=== PATIENT | male | born 1960 | race Caucasian/White ===

== ENCOUNTER 2021-04-09 11:18 | Emergency (ER) | payer OTHER, MEDICAID, SELFPAY ==
[2021-04-09 11:31] VITALS: BP 140/77; PULSE 68; RESP 14; TEMP 36.6; O2SAT 99; BMI 22.4
--- NOTE | 2021-04-09 13:07 | ED.SKABFB ---
HPI - Skin/Abscess/Foreign Bdy <MARILOU Costello - Last Filed: 04/09/21 13:14> General Chief complaint: Skin/Abscess/Foreign Body Stated complaint: Fungus of some kind growing on left hand Time Seen by Provider: 04/09/21 12:02 Source: patient Mode of arrival: Ambulatory Limitations: no limitations History of Present Illness HPI narrative: [age] year male presents to the emergency department with complaint of growth on dorsum of left hand over 2nd distal metacarpall for over 1 year. Patient reports it has not been getting bigger over the last few months nor is it red or painful, but it is bothersome as it is approximately 1 cm tall, as round as a pencil in diameter and catches on things often. He reports that it is painful when it is bumped, but is not been bleeding or have any wounds surrounding. He denies any other skin lesions. He denies any fever, swelling, illness of any kind, or medical problems. He reports that he has an insurance change with his [facility], and he can not find anyone on the [place] who will take his insurance. He would like this lesion removed if possible. He reports that his tetanus is up-to-date. Related Data Home Medications Medication Instructions Recorded Confirmed No Known Home Medications 04/09/21 04/09/21 Allergies Allergy/AdvReac Type Severity Reaction Status Date / Time No Known Drug Allergies Allergy Verified 04/09/21 11:36 Review of Systems <MARILOU Costello - Last Filed: 04/09/21 13:14> Review of Systems Narrative: General: denies fever, chills Head/Neck: denies headache, neck pain Eyes: denies visual changes, eye pain Cardio: denies chest pain, palpitations Respiratory: denies shortness of breath, cough GI: denies abdominal pain, nausea, vomiting, or diarrhea : denies dysuria, hematuria MSK: denies joint pain, muscle weakness Skin: denies rash, itching Neuro: denies numbness, tingling Patient History <MARILOU Costello - Last Filed: 04/09/21 13:14> Social History Smoking Status: Current every day smoker Smoking Status: Current every day smoker alcohol intake frequency: a few times a week Alcohol type: beer Substance Use Type: does not use Exam <MARILOU Costello Last Filed: 04/09/21 13:14> Narrative Exam Narrative: Independently reviewed vitals signs and nursing notes. General: Awake, alert, nontoxic, no cardiorespiratory distress Head/Neck: Atraumatic, neck full range of motion Eyes: EOMI, conjunctiva normal Nose: nares patent, no rhinorrhea Mouth/Throat: moist mucus membranes Cardio: Regular rate and rhythm, no peripheral edema Respiratory: respirations unlabored without wheezing, stridor, or rales. No retractions. GI: Abdomen soft, nontender MSK: Moves all extremities, neurovascularly intact Skin: Normal capillary refill, no rash, left dorsum of his hand over the distal 2nd metacarpal has a 1 cm tall x 10 mm wide lesion which is dark brown, dry, appears crusted, without any surrounding erythema, edema, rash, or skin color change. Neuro: Normal speech and cognition, normal gait Initial Vital Signs Initial Vital Signs: Vital Signs Temperature 97.8 F 04/09/21 11:31 Pulse Rate 68 04/09/21 11:31 Respiratory Rate 14 04/09/21 11:31 Blood Pressure 140/77 04/09/21 11:31 Pulse Oximetry 99 04/09/21 11:31 <DO Sean Varela Last Filed: 04/09/21 13:20> Initial Vital Signs Initial Vital Signs: Vital Signs Temperature 97.8 F 04/09/21 11:31 Pulse Rate 68 04/09/21 11:31 Respiratory Rate 14 04/09/21 11:31 Blood Pressure 140/77 04/09/21 11:31 Pulse Oximetry 99 04/09/21 11:31 Course <MARILOU Costello - Last Filed: 04/09/21 13:14> Orders Ordered: ED Orders 04/09/21 13:07 Consult to Wound Care Stat Vital Signs Vital signs: Vital Signs - 8 hr 04/09/21 11:31 Temperature 97.8 F Pulse Rate 68 Respiratory Rate 14 Blood Pressure 140/77 Pulse Oximetry 99 <DO Sean Varela Last Filed: 04/09/21 13:20> Orders Ordered: ED Orders 04/09/21 13:07 Consult to Wound Care Stat Vital Signs Vital signs: Vital Signs - 8 hr 04/09/21 11:31 Temperature 97.8 F Pulse Rate 68 Respiratory Rate 14 Blood Pressure 140/77 Pulse Oximetry 99 [facility] - Skin/Abscess/Foreign Bdy <Ambar Caridad DIANDRA CastañedaP - Last Filed: 04/09/21 13:14> [facility] Narrative Medical decision making narrative: 60-year-old male presents to the emergency department with concern about a lesion over the dorsum of his left hand for over 1 year. There are no signs of infection, patient has not had any systemic signs of infection, his range of motion of his left hand is not limited in his full dexterity with CMS intact. I refer this patient to wound care clinic because it sounds like his options are limited per minute insurance standpoint. Hopefully wound care will be able to excise this lesion. Patient is very pleasant, has reliable transportation he states, and denied need for pain medication for his lesion. Patient is appropriate and amenable to discharge home. Vital signs are stable on repeat examination is unremarkable. Patient has been informed of results. Patient has been given strict return to ER precautions for any new or worsening symptoms. Patient understands to follow up closely with outpatient providers as instructed. Patient understands plan and agrees to discharge home. All questions and concerns answered at this time. Discharge Plan Departure Patient Disposition: Home Clinical Impression: Abnormal skin growth Instructions: Skin Lesion Removal Activity Restrictions/Additional Instructions: *You have been diagnosed with an abnormal skin growth. Please follow-up with the Wound Care Clinic, they will call you. Please try nor sound Dermatology if that does not work. I do think this is benign, I do not think it is fungal, and it is reassuring that you do not have more thumb. Thank you for coming in today, sorry we could not help you more. *What to do: *Please continue to take your regular medications as directed. [ ] New medication prescriptions sent to your pharmacy: [ ] [ ] New medication written as a paper prescription [x ] No new medications given *Please follow up with your primary care provider in 2-3 days, call for an appointment. Let them know you were seen in the Emergency Department and that we ask that you be seen in follow up. We will electronically transmit a record of today's note if your PCP is in our system *If you do not have a primary care provider please contact the [facility] Resource line at [phone]. They will ask some questions about your medical history and help get you set up with a doctor in the community. *Return to Emergency Department if you should have any new, worsening or concerning symptoms, such as [fever greater than 101F, chills, worsening pain, persistent vomiting or other bothersome symptoms] Prescriptions: No Action No Known Home Medications 0RF Referrals: [facility] [Outside] <Migel Childress DO - Last Filed: 04/09/21 13:20> Cosign ED Attending Eugeneature Attestation: I did evaluate the patient with the APC. Patient does have a growth on the dorsum of his left hand. Does not appear to be cellulitic. Patient does require follow-up with dermatology. Unfortunately removal here in the emergency department is not acceptable.
== END 2021-04-09 13:13 | disposition home or self-care (01) ==
PROVIDERS: Emergency Provider Nurse Practitioner Critical Care Medicine
DX: L98.9 Disorder of the skin and subcutaneous tissue, unspecified (principal); F17.200 Nicotine dependence, unspecified, uncomplicated
CPT/HCPCS: 99281